=== PATIENT | female | born 1990 | race Caucasian/White ===

== ENCOUNTER 2023-02-16 07:43 | Inpatient (IN) ==
[2023-02-16] MEDS ORDERED: OXYTOCIN 30 UNITS/NSS 30 UNITS/500 ML BAG IV PRN ×2 (08:18→10:52)
[2023-02-16] MEDS ORDERED: LIDOCAINE 1% LOCAL 20 ML VIAL INFIL PRN (08:18)
[2023-02-16 09:30] LABS: Hematocrit (blood only) 37.2 % (37.0-47.0); Hemoglobin 12.4 g/dl (12.0-16.0); Mean Corpuscular Hemoglobin 28.4 pg (25.0-34.0); Mean Corpuscular Hgb Conc 33.3 g/dL (32.0-36.0); Mean Corpuscular Volume 85.3 fL (80.0-100.0); Mean Platelet Volume 10.7 fL (9.4-12.4); Platelet Count 202 K/uL (130-400); RDW Coefficient of Variation 13.6 % (11.5-14.5); RDW Standard Deviation 42.5 fL (36.4-46.3); Red Blood Count 4.36 M/uL (4.20-5.40); White Blood Count 9.44 K/ul (4.8-10.8)
[2023-02-16] MEDS: LACTATED RINGER'S 1,000 ML IV PRN ×4 (09:40→22:01)
--- NOTE | 2023-02-16 11:15 | History & Physical Report ---
Date of Service February 16, 2023 Assessment & Plan (1) Gestational diabetes mellitus (GDM) affecting , antepartum: Plan: Tracy is a 32-year-old presents for induction of labor secondary to late term . 1. Fetus: Cat 1 2. Labor: Rocha placed. Pitocin per protocol 3. A1gDM: Well manage. no concerns. EFW at 58th percentile on last growth ultrasound at 36 weeks 4. Vitals: WNL (2) Supervision of normal first : (3) Hypothyroid in , antepartum: (4) Placental abnormality: Admission and Anticipated Discharge Date Admission Date: February 16, 2023 History of Present Illness Primary Care Provider: Nelia Varela MD Tracy is a 32-year-old G1, P0 currently at 40 weeks 5 days gestational age presents for induction of labor secondary to late term . complicated by: Hypothyroid *Check TFTs Q4wks Sees Dr Varela Persistent Right Umbilical Vein on Anatomy *MFM consult- echo - NORMAL monthly growth US weekly NSTs at 32wks CFDNA--low risk akh GDM w/28wk glucola *Begin monthly Growth US's OB Labs: Blood Type A Positive 06/29/22 Antibody Screen NEGATIVE 06/29/22 Hemoglobin 11.9 g/dL (11.7-15.5) 12/02/22 Hematocrit 35.3 % (35.0-45.0) 12/02/22 Mean Corpuscular Volume 84.9 fL (80.0-100.0) 06/29/22 Platelet Count 281 K/uL (130-400) 06/29/22 Rubella IgG Antibody Immune (Immune) 06/29/22 Rapid Plasma Reagin Nonreactive (Nonreactive) 06/29/22 Hepatitis B Surface Antigen. NON-REACTIVE (NON-REACTIVE) 06/29/22 Hepatitis C Antibody (EIA) NON-REACTIVE (NON-REACTIVE) 06/29/22 HIV (1&2) Ag and Ab Confirmation NON-REACTIVE (NON-REACTIVE) 06/29/22 Glucose 1 Hour 50 gm Load 168 mg/dL (<135) H 12/02/22 OB Optional Labs: Chlamydia trachomatis RNA Not Detected (NotDetected) 06/29/22 Neisseria gonorrhoeae RNA Not Detected (NotDetected) 06/29/22 Thyroid Stimulating Hormone (TSH) 2.136 uIu/ml (0.300-4.500) 06/29/22 Labs Reviewed: Declines genetics--mln low risk panorama--akh gbs neg--akh Allergies Allergy/AdvReac Type Severity Reaction Status Date / Time cefaclor [From Ceclor] Allergy Mild Rash Verified 02/16/23 08:16 Home Medications Medication Instructions Recorded Confirmed Type calcium carbonate [Calcium 600] 1 tab PO Q4-5H PRN Heartburn 06/27/22 02/16/23 History prenat.vits,evan,uwh-atge-neczs 1 tab PO DAILY 06/27/22 02/16/23 History bupropion HCl 150 mg 24 hr tablet, 150 mg PO QAM #90 tabs 08/12/22 02/16/23 Rx extended release acetone (urine) test (Ketone Urine #50 ea 12/19/22 02/14/23 Rx Test strips) blood sugar diagnostic (OneTouch #150 ea 12/19/22 02/14/23 Rx Verio test strips) blood-glucose meter (OneTouch #1 ea 12/19/22 02/14/23 Rx Verio Reflect Meter) lancets 33 gauge (OneTouch Delica #150 ea 12/19/22 02/14/23 Rx Plus Lancet) levothyroxine 50 mcg tablet 50 mcg PO DAILY #30 tabs 01/05/23 02/16/23 Rx Patient History Medical History (Updated 02/16/23 @ 11:13 by Jefferson Jimenez MD) Gestational diabetes Diet controlled. History of chicken pox Depression with anxiety Hypothyroidism Surgical History History of gynecologic surgery hymenectomy [place] teeth extracted Family History Grandfather (Paternal) Myocardial infarction Grandfather (Maternal) Prostate cancer Denies family history of Ovarian cancer Breast cancer Colorectal cancer Social History Smoking Status: Never smoker Tobacco Type: Cigarettes Age Started Using Tobacco: 17; Age Quit Using Tobacco: 22; Second Hand Exposure: No; Hx Alcohol Use: No Hx Substance Use: No Preferred Language: Qatari Communication Ability: Effective Correspondence Renew Clerk Required: No Beliefs That Will Affect Care: None marital status: marital status details: Joaquin Gutierrez (32) [phone] Current Living Situation: Spouse and Foster Care Current Living Situation Comment: lives with spouse. 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 Feels Safe at Home: Yes Safety Concerns: Feels Safe At This Time Childhood Exposure to Second-Hand Smoke: No Diet: regular caffeine: Yes Dental Care, Regularly: Yes Physical Activity Frequency: 5-6 Times per Week Seatbelt Use: always Sunscreen Use: Yes Assistive Devices: None Physical Exam Genitourinary: normal external appearance OB Exam Abdomen: + vertex Manual OB Exam: + cervical dilation 1 cm, + cervical effacement 50% and + station -2 OB Exam Monitor Tracing: + external FHT monitor used, + external uterine monitor used, + category I and + normal FHT variability; no early decelerations present, no late decelerations present and no variable decel erations Cervical ripening Rocha placed without difficulty Results & Data Vital Signs (Past 12 Hours) Vital Signs Pulse BP 02/16/23 08:00 89 132/87 Coding Level of Care Code None Diagnoses Gestational diabetes mellitus (GDM) affecting , antepartum O24.419 Encounter for supervision of normal first in third trimester Z34.03 Trimester: third trimester Hypothyroid in , antepartum O99.280; E03.9 Placental abnormality in third trimester O43.103 Trimester: third trimester (2) Supervision of normal first Trimester: third trimester Qualified Code(s): Z34.03 - Encounter for supervision of normal first , third trimester (4) Placental abnormality Trimester: third trimester Qualified Code(s): O43.103 - Malformation of placenta, unspecified, third trimester
[2023-02-16] MEDS ORDERED: BUPIVACAINE 0.25% PF 30 ML VIAL ONE (11:45)
[2023-02-16] MEDS ORDERED: ePHEDrine sulfate 50 MG/ML AMP ONE (11:45)
[2023-02-16] MEDS ORDERED: fentANYL 2 MCG/ML BUPIVacaine 0.125%-NSS 100ML BAG ONE (11:45)
[2023-02-16] MEDS ORDERED: fentaNYL citrate PF 100 MCG/2 ML VIAL ONE (11:45)
[2023-02-16] MEDS ORDERED: SODIUM CHLORIDE 0.9% PF INJ 10 ML VIAL ONE (11:45)
[2023-02-16] MEDS ORDERED: LIDOCAINE 2%/EPINEPHRINE 1:200,000 20 ML PF ONE (11:46)
[2023-02-16] MEDS ORDERED: fentaNYL citrate PF 100 MCG/2 ML VIAL EPI STA (12:27)
[2023-02-16] MEDS ORDERED: SODIUM CHLORIDE 0.9% PF INJ 10 ML VIAL EPI PRN (12:27)
[2023-02-16] MEDS ORDERED: SODIUM CHLORIDE 0.9% PF INJ 10 ML VIAL EPI STA (12:27)
[2023-02-16] MEDS ORDERED: BUPIVACAINE 0.25% PF 30 ML VIAL EPI STA (12:27)
[2023-02-16] MEDS ORDERED: NALOXONE HCL 0.4 MG/1 ML VIAL/CARP IV PRN (12:27)
[2023-02-16] MEDS ORDERED: NALBUPHINE HCL 5 MG in SYRINGE 0 ML IV PRN (12:27)
[2023-02-16] MEDS ORDERED: PROMETHAZINE HCL 6.25 MG in SODIUM CHLORIDE 0.9% 50 ML IV PRN (12:27)
[2023-02-16] MEDS ORDERED: LIDOCAINE 2% MPF LOCAL 5 ML VIAL EPI PRN (12:27)
[2023-02-16] MEDS ORDERED: ROPIVACAINE 0.5% PF 5 MG/ML 20 ML VIAL EPI PRN (12:27)
[2023-02-16] MEDS ORDERED: fentaNYL citrate PF 100 MCG/2 ML VIAL EPI PRN (12:27)
[2023-02-16] MEDS ORDERED: ePHEDrine sulfate 50 MG/ML AMP IV PRN (12:27)
[2023-02-16] MEDS ORDERED: ONDANSETRON INJ 2 MG/ML 2 ML VIAL IV PRN (12:27)
[2023-02-16] MEDS ORDERED: LIDOCAINE 2%/EPINEPHRINE 1:200,000 20 ML PF EPI STA (12:27)
[2023-02-16] MEDS ORDERED: diphenhydrAMINE 50 MG/ML VIAL IV PRN (12:27)
[2023-02-16] MEDS ORDERED: BUPIVACAINE 0.25% PF 30 ML VIAL EPI PRN (12:27)
[2023-02-16] MEDS ORDERED: NALOXONE HCL 1 MG in SODIUM CHLORIDE 0.9% 1,000 ML IV PRN (12:27)
--- NOTE | 2023-02-16 12:27 | Anesthesiology Consultation ---
Date of Service February 16, 2023 Assessment & Plan Chart Review Chart Review: Patient NOT seen in Pre Admission Testing and Acceptable Risk for Labor Epidural Consults Requested none ASA ASA2 Proposed Anesthesia Anesthesia Type: Labor Epidural Risk / Benefits Reviewed With: PT / POA / Parent / Guardian, Accepts Plan and Informed Consent Obtained History Height/Weight Height: 5 ft 2 in Weight: 80.286 kg Allergies Allergy/AdvReac Type Severity Reaction Status Date / Time cefaclor [From [facility]] Allergy Mild Rash Verified 02/16/23 08:16 Medications Home Medications Medication Instructions Recorded Confirmed Last Taken calcium carbonate [Calcium 600] 1 tab PO Q4-5H PRN Heartburn 06/27/22 02/16/23 Unknown prenat.vits,evan,mlm-miqp-qlyic 1 tab PO DAILY 06/27/22 02/16/23 02/15/23 20:30 bupropion HCl 150 mg 24 hr tablet, 150 mg PO QAM #90 tabs 08/12/22 02/16/23 02/15/23 20:30 extended release acetone (urine) test (Ketone Urine #50 ea 12/19/22 02/14/23 Unknown Test strips) blood sugar diagnostic (OneTouch #150 ea 12/19/22 02/14/23 Unknown Verio test strips) blood-glucose meter (OneTouch #1 ea 12/19/22 02/14/23 Unknown Verio Reflect Meter) lancets 33 gauge (OneTouch Delica #150 ea 12/19/22 02/14/23 Unknown Plus Lancet) levothyroxine 50 mcg tablet 50 mcg PO DAILY #30 tabs 01/05/23 02/16/23 02/15/23 20:30 Active Medications Generic Name Dose Route Start Last Admin Trade Name Freq PRN Reason Stop Dose Admin Lactated Ringer's 1,000 mls @ 125 mls/hr 02/16/23 08:18 02/16/23 12:02 Lr IV 02/18/23 08:17 125 mls/hr .Q8H PRN Infusion L&D Protocol Protocol Past Medical History Medical History (Updated 02/16/23 @ 11:13 by Jefferson Jimenez MD) Gestational diabetes Diet controlled. History of chicken pox Depression with anxiety Hypothyroidism Exercise / Class Metabolic Activity II 4-5 Yardwork/Stairs/Walk up hill Past Family History Family History Grandfather (Paternal) Myocardial infarction Grandfather (Maternal) Prostate cancer Denies family history of Ovarian cancer Breast cancer Colorectal cancer Past Surgical History Surgical History History of gynecologic surgery hymenectomy [place] teeth extracted Past Anesthesia History No Hx of Anesthesia Complications and No Family Hx of Anesthesia Complications History of PONV No Hx of PONV and No Hx of Motion Sickness Social History Smoking Status: Never smoker Hx Alcohol Use: No Alcohol type: wine Hx Substance Use: No substance use type: former substance user Physical Exam Vital Signs Last Vital Signs Temp 36.9 C 02/16/23 08:20 Pulse 72 02/16/23 12:25 Resp 18 02/16/23 08:20 BP 123/77 02/16/23 12:25 Pulse Ox 98 02/16/23 12:24 ENMT Mouth: no dentition abnormality Thyromental Distance: > or= 3.5 Finger Breadths Mallampati Class: II Neck normal visual inspection Respiratory normal respiratory effort Auscultation: lungs clear to auscultation bilaterally Cardiovascular Rate/Rhythm: regular rate and regular rhythm Psychiatric Orientation: alert Testing Laboratory Results 02/16/23 08:26
--- NOTE | 2023-02-16 17:47 | Labor Progress Brief Note ---
Date of Service February 16, 2023 Subjective Reason For Note: Routine Evaluation Patient reports that she is doing well and is comfortable with epidural Assessment & Plan (1) Gestational diabetes mellitus (GDM) affecting , antepartum: Plan: Tracy is a 32-year-old presents for induction of labor secondary to late term . 1. Fetus: Cat 1 2. Labor: s/p Rocha. Pitocin per protocol. Progressing well 3. A1gDM: Well manage. no concerns. EFW at 58th percentile on last growth ultrasound at 36 weeks 4. Vitals: WNL (2) Supervision of normal first : Trimester: third trimester Qualified Code(s): Z34.03 - Encounter for supervision of normal first , third trimester (3) Hypothyroid in , antepartum: (4) Placental abnormality: Trimester: third trimester Qualified Code(s): O43.103 - Malformation of placenta, unspecified, third trimester Admission and Anticipated Discharge Date Admission Date: February 16, 2023 Physical Exam Genitourinary: normal external appearance Manual OB Exam: + cervical dilation 5 cm, + cervical effacement 90%, + station -1 and + amniotic fluid meconium OB Exam Monitor Tracing: + external FHT monitor used, + external uterine monitor used, + category I and + normal FHT variability; no early decelerations present, no late decelerations present and no variable decelerations Results & Data Vital Signs (Past 12 Hours) Vital Signs Temp Pulse Resp BP Pulse Ox 02/16/23 17:43 86 02/16/23 17:43 130/85 02/16/23 17:39 100 02/16/23 17:39 102 H 02/16/23 17:34 98 02/16/23 17:34 79 02/16/23 17:29 98 02/16/23 17:29 77 02/16/23 17:29 74 02/16/23 17:29 125/84 02/16/23 17:24 98 02/16/23 17:24 75 02/16/23 17:19 100 02/16/23 17:19 87 02/16/23 17:18 18 02/16/23 17:18 37.1 C 18 02/16/23 17:14 100 02/16/23 17:14 82 02/16/23 17:13 69 02/16/23 17:13 130/78 02/16/23 17:09 100 02/16/23 17:09 69 02/16/23 17:04 100 02/16/23 17:04 69 02/16/23 16:59 100 02/16/23 16:59 69 02/16/23 16:58 67 02/16/23 16:58 120/73 02/16/23 16:54 99 02/16/23 16:54 73 02/16/23 16:49 100 02/16/23 16:49 71 02/16/23 16:44 98 02/16/23 16:44 68 02/16/23 16:43 71 02/16/23 16:43 130/64 02/16/23 16:39 99 02/16/23 16:39 67 02/16/23 16:34 99 02/16/23 16:34 67 02/16/23 16:29 98 02/16/23 16:29 66 02/16/23 16:28 66 02/16/23 16:28 119/70 02/16/23 16:24 99 02/16/23 16:24 68 02/16/23 16:19 100 02/16/23 16:19 67 02/16/23 16:15 16 02/16/23 16:15 36.8 C 16 02/16/23 16:14 100 02/16/23 16:14 63 02/16/23 16:12 62 02/16/23 16:12 124/72 02/16/23 16:09 100 02/16/23 16:09 84 02/16/23 16:04 100 02/16/23 16:04 66 02/16/23 15:59 100 02/16/23 15:59 65 02/16/23 15:57 62 02/16/23 15:57 124/69 02/16/23 15:54 100 02/16/23 15:54 61 02/16/23 15:49 100 02/16/23 15:49 92 H 02/16/23 15:47 63 02/16/23 15:47 125/69 02/16/23 15:44 100 02/16/23 15:44 73 02/16/23 15:39 100 02/16/23 15:39 67 02/16/23 15:34 100 02/16/23 15:34 72 02/16/23 15:29 100 02/16/23 15:29 71 02/16/23 15:27 71 02/16/23 15:27 129/92 02/16/23 15:24 100 02/16/23 15:24 76 02/16/23 15:19 100 02/16/23 15:19 74 02/16/23 15:14 100 02/16/23 15:14 71 02/16/23 15:13 77 02/16/23 15:13 130/91 02/16/23 15:09 100 02/16/23 15:09 76 02/16/23 15:04 100 02/16/23 15:04 78 02/16/23 15:01 18 02/16/23 15:01 36.8 C 18 02/16/23 14:59 100 02/16/23 14:59 73 02/16/23 14:59 76 02/16/23 14:59 130/92 02/16/23 14:54 100 02/16/23 14:54 72 02/16/23 14:49 100 02/16/23 14:49 68 02/16/23 14:44 100 02/16/23 14:44 71 02/16/23 14:44 69 02/16/23 14:44 134/86 02/16/23 14:39 100 02/16/23 14:39 75 02/16/23 14:34 100 02/16/23 14:34 73 02/16/23 14:30 20 02/16/23 14:30 20 02/16/23 14:29 100 02/16/23 14:29 77 02/16/23 14:28 66 02/16/23 14:28 130/84 02/16/23 14:24 100 02/16/23 14:24 71 02/16/23 14:19 100 02/16/23 14:19 67 02/16/23 14:14 100 02/16/23 14:14 69 02/16/23 14:13 73 02/16/23 14:13 127/85 02/16/23 14:09 100 02/16/23 14:09 69 02/16/23 14:04 100 02/16/23 14:04 75 02/16/23 13:59 100 02/16/23 13:59 68 02/16/23 13:59 64 02/16/23 13:59 129/81 02/16/23 13:54 100 02/16/23 13:54 68 02/16/23 13:49 100 02/16/23 13:49 70 02/16/23 13:45 67 02/16/23 13:45 126/80 02/16/23 13:44 100 02/16/23 13:44 68 02/16/23 13:39 100 02/16/23 13:39 76 02/16/23 13:34 100 02/16/23 13:34 70 02/16/23 13:29 100 02/16/23 13:29 70 02/16/23 13:28 71 02/16/23 13:28 119/80 02/16/23 13:24 100 02/16/23 13:24 73 02/16/23 13:19 100 02/16/23 13:19 71 02/16/23 13:14 100 02/16/23 13:14 77 02/16/23 13:14 128/79 02/16/23 13:09 100 02/16/23 13:09 78 02/16/23 13:04 100 02/16/23 13:04 72 02/16/23 12:59 100 02/16/23 12:59 72 02/16/23 12:58 68 02/16/23 12:58 132/82 02/16/23 12:54 100 02/16/23 12:54 73 02/16/23 12:51 69 02/16/23 12:51 136/80 02/16/23 12:50 68 02/16/23 12:50 125/78 02/16/23 12:49 99 02/16/23 12:49 74 02/16/23 12:44 99 02/16/23 12:44 64 02/16/23 12:44 125/73 02/16/23 12:39 99 02/16/23 12:39 73 02/16/23 12:34 99 02/16/23 12:34 71 02/16/23 12:29 98 02/16/23 12:29 70 02/16/23 12:27 69 02/16/23 12:27 123/76 02/16/23 12:25 72 02/16/23 12:25 123/77 02/16/23 12:24 98 02/16/23 12:24 80 02/16/23 12:19 100 02/16/23 12:19 76 02/16/23 12:14 98 02/16/23 12:14 80 02/16/23 12:09 98 02/16/23 12:09 79 02/16/23 11:50 18 02/16/23 11:50 37.0 C 18 02/16/23 11:50 70 02/16/23 11:50 140/88 02/16/23 08:20 36.9 C 89 18 132/87 02/16/23 08:00 36.9 C 89 18 132/87 Coding Level of Care Code None Diagnoses Gestational diabetes mellitus (GDM) affecting , antepartum O24.419 Encounter for supervision of normal first in third trimester Z34.03 Trimester: third trimester Hypothyroid in , antepartum O99.280; E03.9 Placental abnormality in third trimester O43.103 Trimester: third trimester
[2023-02-16] MEDS: fentANYL 2 MCG/ML BUPIVacaine 0.125%-NSS 100ML BAG EPI PRN (21:20)
[2023-02-17] MEDS: LACTATED RINGER'S 1,000 ML IV PRN ×2 (00:29→03:23)
[2023-02-17 03:28] LABS: Creatinine Clr Calc Pharmacy 77.8 ml/min; Est GFR (African American) 84.7 ml/min; Est GFR (Non-African American) 73.1 ml/min
[2023-02-17] MEDS: fentANYL 2 MCG/ML BUPIVacaine 0.125%-NSS 100ML BAG EPI PRN (05:09)
[2023-02-17] MEDS ORDERED: bisacodyL 10 MG SUPP PR PRN (07:32)
[2023-02-17] MEDS ORDERED: HYDROCORTISONE ACETATE 25 MG SUPP PR PRN (07:32)
[2023-02-17] MEDS ORDERED: BENZOCAINE 20% SPRY 85 APPLN/85 GM CAN EXT PRN (07:32)
[2023-02-17] MEDS ORDERED: OXYTOCIN 30 UNITS/NSS 30 UNITS/500 ML BAG IV PRN (07:32)
[2023-02-17] MEDS ORDERED: ACETAMINOPHEN 325 MG TAB PO PRN (07:32)
[2023-02-17] MEDS ORDERED: DIPHTHERIA/TETANUS/PERTUSSIS Vaccine (Tdap, Age 7+yrs) 0.5mL SYR/VL IM ONE (07:32)
--- NOTE | 2023-02-17 07:39 | Delivery Summary ---
Vaginal Delivery Summary Date of Service February 17, 2023 Vaginal Delivery Summary and 2nd Degree LAC Patient progressed to 10 cm dilated 100% effaced +2 station pushed over intact perineum with epidural anesthesia and delivered a viable with weight pending Apgars of 6 and 9 at 1 and 5 minutes respectively. Patient pushed for approximately 15 to 20 minutes to achieve delivery. Head of the delivered in TEGAN position transition to left transverse. Single loose nuchal cord was noted which was easily reduced. Body and shoulders quickly followed. was noted to have spontaneous cry and good tone at approximately 20-30 seconds postdelivery. A 1 minute delayed cord clamping was initiated cord was then double clamped and cut. taken to the nursery staff for further evaluation secondary to thick meconium and irregular crying effort. Cord blood obtained. Attention was then turned to delivery of the placenta which delivered intact with three-vessel cord with gentle cord traction. There is noted to be second-degree perineal laceration was repaired with 3-0 Vicryl in traditional crown stitch. Needle sponge and instrument counts were correct at the completion of the case. Both mother and stable in the immediate postdelivery period. EBL of approximately 300. No complications with delivery [facility] Vaginal Delivery Charge Delivery Type Details: and 2nd Degree LAC
[2023-02-17] MEDS: LEVOTHYROXINE SODIUM 50 MCG TABLET PO SCH (07:55)
--- NOTE | 2023-02-17 09:01 | Anesthesia Procedure Note ---
Date of Service February 17, 2023 Anesthesia Post Epidural Note Vital Signs Vital Signs: Temp Pulse Resp BP Pulse Ox 99.7 F H 68 18 144/92 H 94 02/17/23 06:15 02/17/23 08:57 02/17/23 06:15 02/17/23 08:57 02/17/23 07:05 Pain Intensity Abdomen: Pain Intensity: 6 Notes Mental Status: alert / awake / arousable and participated in evaluation Nausea / Vomiting: adequately controlled Pain: adequately controlled Airway Patency, RR, SpO2: stable & adequate BP & HR: stable & adequate Hydration State: stable & adequate Neuraxial Anesthesia: was administered and sensory block is resolving Anesthetic Complications: no major complications apparent and Pt Satisfied with anesthetic care Epidural: Removed without complications and With tip intact
[2023-02-17] MEDS: IBUPROFEN 600 MG TAB PO PRN ×3 (09:13→23:51)
[2023-02-17] MEDS: PRENATAL VITAMIN 1 TAB PO SCH (09:14)
[2023-02-17] MEDS: FERROUS SULFATE 325 MG TAB PO SCH (09:14)
[2023-02-17] MEDS: DOCUSATE SODIUM 100 MG CAP PO SCH ×2 (09:14→20:27)
[2023-02-17] MEDS ORDERED: buPROPion XL 150 MG TABCR PO SCH (16:30)
[2023-02-17] MEDS ORDERED: Nursing to Pharmacy Communication SCH (16:45)
[2023-02-17] MEDS: buPROPion XL 150 MG TABCR PO SCH (20:27)
[2023-02-18] MEDS: LEVOTHYROXINE SODIUM 50 MCG TABLET PO SCH (06:30)
--- NOTE | 2023-02-18 07:49 | Obstetrical Progress Note ---
Date of Service <Jessica Bazan MD - Last Filed: 02/18/23 07:49> February 18, 2023 Assessment & Plan <Jessica Bazan MD - Last Filed: 02/18/23 07:49> (1) Encounter for care after hospital delivery: Patient with the above mentioned history and findings was evaluated at bedside and found awake, alert, oriented in all spheres, afebrile, and in no acute distress. Vital signs showed no fever and blood pressures remained stable. Her blood type is A positive and most recent hemoglobin is adequate at 12.4 g/dL. She is GBS negative and rubella immune. Overall, patient is doing well clinically and meeting the desired milestones. Continue routine pp care. If she remains stable, anticipate discharge tomorrow. All questions answered. <Jocelyne Chadwick MD, FACOG - Last Filed: 02/18/23 07:55> (1) Encounter for care after hospital delivery: Subjective <Jessica Bazan MD - Last Filed: 02/18/23 07:49> Tracy is a 32y/o female who is now PPD # 1 following at 40 5/7 weeks. Reports feeling well overall this morning. Refers mild abdominal cramping & 3/10 pain well managed on analgesics. Voiding spontaneously. Has passed flatus but no bowel movements yet. Tolerating meals overnight and able to ambulate some. Some persistent lochia with some improvement this morning. with some difficulty. Constitutional: no fever, no chills or no sweats Denies shortness of breath or difficulty breathing Cardiovascular: no chest pain or no palpitations Breast: no breast pain Genitourinary (female): no dysuria Neurologic: no headache(s) Denies changes in vision Physical Exam <Jessica Bazan MD - Last Filed: 02/18/23 07:49> General: Alert. Oriented to person, time, and place. Afebrile. No acute distress. Eyes: pupils equal and reactive to light bilaterally, extraocular movements intact. Cardiac: Regular rate and rhythm, no murmurs/rubs/gallops. Respiratory: Clear to auscultation bilaterally a/p, no wheezes/rales/rhonchi. No increased work of breathing. Symmetrical chest rise. No respiratory distress. Abdomen: Soft, nontender, nondistended. Bowel sounds present. Uterus: Uterine fundus firm, non-tender, and palpable at umbilicus. Lower Extremities: No lower extremity edema or swelling. No deep calf pain. Karlos's negative bilaterally. Psych: Euthymic affect. Mood and affect congruence. Regular speech rate and content. Results & Data <Jessica Bazan MD - Last Filed: 02/18/23 07:49> Vital Signs (Past 12 Hours) Vital Signs Temp Pulse Resp BP O2 Del Method 02/18/23 07:22 36.7 C 69 17 132/76 02/18/23 03:30 36.3 C L 69 18 130/80 Room Air 02/17/23 23:45 36.4 C L 76 16 116/77 Room Air Supervising Physician <Jocelyne Chadwick MD, FACOG - Last Filed: 02/18/23 07:55> Co-Signing Physician Notes Resident Physician Supervision Note: I interviewed and examined the patient. Discussed with Dr. Bazan and agree with f indings and plan as documented in the note. Any exceptions or clarifications are listed here: [None] Documented By: Jocelyne Chadwick MD, FACOG
[2023-02-18] MEDS: PRENATAL VITAMIN 1 TAB PO SCH (08:20)
[2023-02-18] MEDS: IBUPROFEN 600 MG TAB PO PRN ×2 (08:20→17:48)
[2023-02-18] MEDS: DOCUSATE SODIUM 100 MG CAP PO SCH ×2 (08:20→21:06)
[2023-02-18] MEDS: FERROUS SULFATE 325 MG TAB PO SCH (08:20)
[2023-02-18] MEDS ORDERED: bisacodyL 5 MG TABEC PO SCH (20:00)
[2023-02-18] MEDS: buPROPion XL 150 MG TABCR PO SCH (21:06)
[2023-02-19] MEDS: IBUPROFEN 600 MG TAB PO PRN ×3 (00:12→09:04)
[2023-02-19] MEDS: LEVOTHYROXINE SODIUM 50 MCG TABLET PO SCH (06:23)
--- NOTE | 2023-02-19 08:44 | Obstetrical Progress Note ---
Date of Service February 19, 2023 Assessment & Plan (1) Encounter for care after hospital delivery: day #2 meets discharge criteria no extremity pain no depression she is breast-feeding well and minimal bleeding she will contact her office for follow-up Subjective Ambulation: ambulating normally Voiding: no voiding problems Passing Gas:: Yes Diet Tolerance:: regular diet Lochia:: Small Feeding Type:: breast feeding Physical Exam Constitutional WD/WN, vitals as above well developed and well nourished Respiratory normal respiratory effort, lungs clear to auscultation normal respiratory effort Cardiovascular RRR, no murmur, no edema Gastrointestinal (Abdomen) normal bowel sounds, soft, nontender, no hepatosplenomegaly Results & Data Vital Signs (Past 12 Hours) Vital Signs Temp Pulse Resp BP Pulse Ox O2 Del Method 02/19/23 00:19 97.7 F 74 16 138/84 95 Room Air
[2023-02-19] MEDS: FERROUS SULFATE 325 MG TAB PO SCH (09:04)
[2023-02-19] MEDS: DOCUSATE SODIUM 100 MG CAP PO SCH (09:04)
[2023-02-19] MEDS: PRENATAL VITAMIN 1 TAB PO SCH (09:04)
== END 2023-02-19 13:49 | disposition home or self-care (01) | DRG 807 ==
LOC: 4S1 07:43 → 4E2 02-17 10:18